=== PATIENT | male | born 1980 | race Caucasian/White ===

== ENCOUNTER → 2019-04-24 17:48 | Outpatient (CLI) | payer BC, SELFPAY ==
[2019-04-24 18:17] LABS: Basophils # 0.1 K/mm3 (0-0.2); Eosinophils # 0.1 K/mm3 (0.0-0.4); Eosinophils % 2.3 % (0.1-12.0); Hematocrit 46.5 % (42.0-52.0); Hemoglobin 14.5 g/dL (14.1-18.0); Lymphocytes # 1.8 K/mm3 (0.7-4.5); Lymphocytes % 32.5 % (10-50); Mean Corpuscular HGB Conc 31.1 g/dL (31.8-35.4); Mean Corpuscular Hemoglobin 26.2 pg (27.0-31.2); Mean Corpuscular Volume 84.2 fl (80-94); Mean Platelet Volume 9.9 fl (7.4-10.4); Monocytes # 0.4 K/mm3 (0.1-1.0); Monocytes % 7.8 % (1.7-9.3); Neutrophils # 3.2 K/mm3 (1.8-7.8); Neutrophils % 56.5 % (37.0-80.0); Platelet Count 226 K/mm3 (142-424); Red Blood Count 5.52 M/mm3 (4.60-6.20); Red Cell Distribution Width 12.7 % (11.5-17.5); White Blood Count 5.7 K/mm3 (4.8-10.8)
[2019-04-24 19:08] LABS: Alanine Aminotransferase 23 U/L (12-78); Albumin Level 4.3 gm/dL (3.4-5.0); Albumin/Globulin Ratio 1.5 (1.1-1.8); Alkaline Phosphatase 83 U/L (46-116); Anion Gap 17.6 mEq/L (5-15); Aspartate Amino Transferase 21 U/L (15-37); Bilirubin,Total 0.7 mg/dL (0.2-1.0); Blood Urea Nitrogen 16 mg/dL (7-18); Calcium 9.4 mg/dL (8.5-10.1); Carbon Dioxide 25 mmol/L (21.0-32.0); Chloride 104 mmol/L (98-107); Cholesterol 234 mg/dL (140-200); Creatinine,Serum 1.08 mg/dL (0.70-1.30); Estimated Glomerular Filt Rate 76 ml/min (>60); GFR (African American) 92 ML/MIN (>60); Globulin 2.9 gm/dl (1.3-3.2); Glucose 90 mg/dL (74-106); HDL Cholesterol 47 mg/dL (27-67); LDL Cholesterol 163 mg/dL (0-130); Potassium 4.6 mmoL/L (3.5-5.1); Sodium 142 mmol/L (136-145); T4 (Thyroxine) 9.4 ug/dl (4.7-13.3); Thyroid Stimulating Hormone 1.03 uIU/ml (0.358-3.740); Total Protein,Serum 7.2 gm/dL (6.4-8.2); Triglycerides 120 mg/dL (30-200); VLDL Cholesterol 24 mg/dL (0-40)
== END ==
PROVIDERS: Visit Provider Physician Assistant
DX: Z00.00 Encounter for general adult medical examination without abnormal findings (principal)
CPT/HCPCS: 80053; 80061; 82652; 84436; 84443; 85025

== ENCOUNTER → 2019-04-25 11:32 | Outpatient (CLI) | payer BC, SELFPAY ==
--- NOTE | 2019-04-25 11:35 | XR_ITS ---
EXAM: XR cervical spine 4V HISTORY: ITS.REASON: Neck pain ORDERING PHYSICIAN: NIRMAL Lopez PATIENT AGE: 39 years 3 COMPARISON: None . Procedure Five-view cervical spine series performed:. This includes AP, lateral, both obliques and multiple open-mouth odontoid view . The patient return for more optimal oblique views. FINDINGS Normal alignment.No fracture nor subluxation. No blastic or lytic changes. Prevertebral soft tissues appear normal. Apices the lungs are clear. Normal C1-C2 relationships. Odontoid is intact . Degenerative disc space narrowing and Cervical spondylosis most evident at C 4/5: . Degenerative disc disease most pronounced at C4-C5.. Diffuse posterior endplate hypertrophic ridging. The posterior osteophytes indents the anterior thecal sac as seen on today's lateral view. . Oblique views demonstrate spurs encroaching upon the right foramen more so than left.. Only Scant posterior ridging at C6/7. Scant foraminal encroachment IMPRESSION Degenerative changes and cervical spondylosis most pronounced at C 4/5 . Diffuse posterior hypertrophic ridging indenting anterior thecal sac with bilateral foraminal encroachment,. Spurring most pronounced encroach upon right foramen.
== END ==
PROVIDERS: PCP Emergency Medicine; Visit Provider Physician Assistant
DX: M54.2 Cervicalgia (principal)
CPT/HCPCS: 72050

== ENCOUNTER 2022-08-09 15:50 | Emergency (ER) | payer BC, SELFPAY ==
[2022-08-09 16:10] VITALS: BP 132/87; PULSE 103; RESP 18; TEMP 36.8; O2SAT 98; BMI 18.3
--- NOTE | 2022-08-09 16:13 | EXP.UTC ---
Discharge Plan Disposition Patient Disposition: Home, Self-Care Condition: Good Prescriptions Prescriptions: New hydrocortisone [Procto-Med HC] 2.5 % cream with perineal applicator 1 applic [place] TID PRN (Reason: hemorrhoids) Qty: 30 1RF Rx Instructions: apply after each bowel movements No Action methylprednisolone [Medrol (En)] 4 mg tablets,dose pack 4 mg PO PER PKG DIR 6 Days Qty: 21 0RF meloxicam [Mobic] 15 mg tablet 15 mg PO DAILY Qty: 30 2RF pantoprazole [Protonix] 40 mg tablet,delayed release (DR/EC) 40 mg PO DAILY Qty: 30 2RF ergocalciferol (vitamin D2) 50,000 unit capsule 50,000 unit PO QWEEK 90 Days Qty: 12 0RF cholecalciferol (vitamin D3) 1,000 unit capsule 1,000 unit PO DAILY Qty: 90 1RF atorvastatin 10 mg tablet 10 mg PO DAILY Qty: 90 0RF tizanidine [Zanaflex] 4 mg tablet 4 mg PO Q8H PRN (Reason: muscle spasticity) Qty: 90 0RF buprenorphine-naloxone 8-2 mg film 1.5 film sublingual DAILY Label Comments: 1.5 FILM(S) SUBLINGUALLY 1 TIMES A DAY Referrals Follow up/Referrals: Provider,Referral, MD [Primary Care Provider] - See instructions Activity Restrictions/Add. Instructions Additional Instructions/Restrictions: Follow up with General Surgery if pain and hemorrhoid continues and does not improve Sitz baths may help with pain and discomfort Apply ice on your anus for 15 to 20 minutes every hour or as directed.?Use an ice pack, or put crushed ice in a plastic bag. Cover it with a towel before you apply it to your anus. Ice helps prevent tissue damage and decreases swelling and pain. Keep your anal area clean.?Gently wash the area with warm water daily. Soap may irritate the area. After a bowel movement, wipe with moist towelettes or wet toilet paper. Dry toilet paper can irritate the area. Also Preparation H Wipes may help Follow up with your Family Doctor if needed Straight to ER if any life threatening symptoms Clinical Impressions Clinical Impression: Hemorrhoids Instructions Patient Instructions: Hemorrhoids, Hydrocortisone Rectal Discharge ED Provider: Carmelina Matthews [facility] [place] HPI General Stated complaint: pain in hemroid area Time Seen by Provider: 08/09/22 16:13 History of Present Illness Provider Complaint: Patient states that he has been having hemorrhoids on and off for years but for the last few weeks he has had one and it is not getting any better States that he has been using OTC medications for it but none has worked States that he was upstairs with family so he came in to get it checked out Related Data Home Medications Medication Instructions Recorded Confirmed buprenorphine 8 mg-naloxone 2 mg 1.5 film sublingual DAILY 08/09/22 08/09/22 sublingual film substance abuse Previous Rx's Medication Instructions Recorded meloxicam 15 mg tablet (Mobic) 15 mg PO DAILY #30 tabs 04/24/19 methylprednisolone 4 mg tablets in 4 mg PO PER PKG DIR 6 days #21 tabs 04/24/19 a dose pack (Medrol (En)) pantoprazole 40 mg tablet,delayed 40 mg PO DAILY #30 tabs 04/24/19 release (Protonix) atorvastatin 10 mg tablet 10 mg PO DAILY #90 tabs 04/28/19 cholecalciferol (vitamin D3) 25 1,000 unit PO DAILY #90 caps 04/28/19 mcg (1,000 unit) capsule ergocalciferol (vitamin D2) 1,250 50,000 unit PO QWEEK 90 days #12 04/28/19 mcg (50,000 unit) capsule caps tizanidine 4 mg tablet (Zanaflex) 4 mg PO Q8H PRN muscle spasticity 05/30/19 #90 tabs hydrocortisone 2.5 % topical cream 1 applic [place] TID PRN hemorrhoids 08/09/22 with perineal applicator #30 grams (Procto-Med HC) Allergies Allergy/AdvReac Type Severity Reaction Status Date / Time No Known Allergies Allergy Verified 08/09/22 16:13 PFSH PFSH Social History Smoking Status: Current every day smoker tobacco type: cigarettes packs per day: 1 alcohol intake: never substance use type: former substance user, opiates and painkillers current occupational status: other T
[2022-08-09 16:38] VITALS: BP 132/87; PULSE 103; RESP 18; TEMP 36.8
== END 2022-08-09 16:46 | disposition home or self-care (01) ==
PROVIDERS: Emergency Provider Nurse Practitioner
DX: K64.9 Unspecified hemorrhoids (principal); M62.838 Other muscle spasm; F17.210 Nicotine dependence, cigarettes, uncomplicated; Z79.52 Long term (current) use of systemic steroids; Z79.899 Other long term (current) drug therapy
CPT/HCPCS: 99212; G0463